=== PATIENT | female | born 1965 | race Caucasian/White ===

== ENCOUNTER 2018-03-31 18:05 | Inpatient (IN) | payer OTHER ==
[2018-03-31 18:44] LABS: Absolute Lymphocytes (CBC) 1.7 K/uL (0.7-4.9); Absolute Monocytes 0.5 K/uL (0.1-1.3); Absolute Neutrophil 8.7 K/uL (1.8-8.0); Basophils % 0.8 % (0-1.3); Eosinophils % 1.3 % (0-4.4); Hematocrit 33.2 % (36.0-45.0); Lymphocytes % 15.1 % (15.3-44.8); MCV 65.7 fL (80-100); MPV 8.7 fL (7.6-11.3); Monocytes % 4.1 % (3.3-12.3); RBC Red Blood Cell Count 5.06 M/uL (3.86-4.86)
[2018-03-31 18:55] VITALS: BMI 23.7
[2018-03-31 19:01] LABS: Albumin 3.7 g/dL (3.4-5.0); Bilirubin Total 0.3 mg/dL (0.2-1.0); Potassium 3.8 mmol/L (3.5-5.1); Protein, Total 7.7 g/dL (6.4-8.2); Protime INR 0.97
[2018-03-31 19:42] LABS: Blood Morphology Comment NOTED (NOT SEEN); Hypochromasia 1+; Platelet Estimate ADEQ; Target Cells 1+; Urine White Blood Cell Casts OK
[2018-03-31] MEDS: MORPHINE 4 MG/ML SYR IV PRN (20:22)
[2018-03-31] MEDS ORDERED: HEPARIN 10,000 UNIT/10 ML VIAL IV ONE (20:25)
[2018-03-31] MEDS ORDERED: D5W IV PRN (20:25)
[2018-03-31] MEDS ORDERED: HEPARIN IV PRN (20:25)
[2018-04-01] MEDS: MORPHINE 4 MG/ML SYR IV PRN ×5 (00:25→22:01)
[2018-04-01] MEDS: NICOTINE 7 MG/PAT TD SCH (00:27)
[2018-04-01 03:03] LABS: Urine Appearance CLEAR; Urine Bilirubin NEGATIVE (NEG); Urine Blood NEGATIVE (NEG); Urine Color YELLOW; Urine Glucose NEGATIVE (NEG); Urine Protein NEGATIVE (NEG); Urine Urobilinogen 0.2 mg/dL (0.2-1.0); Urine pH 6.5 (5.0-7.0)
[2018-04-01 03:04] LABS: Urine Microscopic Reflex NO UMIC
[2018-04-01 07:32] LABS: MPV 8.9 fL (7.6-11.3)
[2018-04-01 08:30] LABS: Platelet Estimate ADEQ
[2018-04-01 09:15] LABS: Hematocrit 30.4 % (36.0-45.0); MCH 20.5 pg (27.0-35.0); MCV 65.2 fL (80-100); MPV 9.6 fL (7.6-11.3); RBC Red Blood Cell Count 4.66 M/uL (3.86-4.86)
--- NOTE | 2018-04-01 10:43 | CON ---
History Of Present Illness: Ms. Richey is a 53-year-old. She went to see Dr. Manzo because the s econd toe on her left foot turned purple, started hurting. An arterial Doppler was done. It indicat es there is probably aorto or iliac disease on the left and I asked to see her to see if an angiogram might be helpful. The patient has never had any peripheral interventions before. She is a heavy ci garette smoker, failed to quit. She has never had myocardial infarction or stroke or any other vascu lar interventions. She has underlying hypertension and COPD. She takes temazepam, diltiazem, Proton ix, Zofran, and vitamin B12. She has a problem with chronic anemia and indeed she is anemic right no w. Her mean corpuscular volume is just 65, so I will ask Dr. Julian, who has seen her before to se e if he thinks she could tolerate being on aspirin and Plavix. We can repeat a CBC now and see if he r hemoglobin has fallen while she has been on heparin that might help us feel more confident about pu tting her on anticoagulants. Physical Examination: General: She is alert, oriented, pleasant, not in distress. Vital Signs: 5 feet 3, 134 pounds. HEENT: Normal. No carotid bruit. Lungs: Clear. Cardiac: Normal. Left femoral bruit. Extremities: Pulses on the left foot are barely, palpable on the right foot. There are normal both dorsalis pedis and posterior tibial. Assessment And Plan: We will do a CBC, set her up for an angiogram, get Dr. Manzo to put on the shilo t what we know about her GI tract, whether she would be a candidate or could withstand dual anti-platelet therapy for a month. LUZ MARIA/MODL Voice ID: [id number] Report ID: [id number]
--- NOTE | 2018-04-01 10:49 | HP ---
Date of Admission: 03/31/2018 Chief Complaint: Pain, discoloration, left foot. History Of Present Illness: A 53-year-old female, who was brought to my office with pain and discolo ration of the toe. The patient clinically diagnosed by me as a severe impending gangrene with rest p ain. The patient had outpatient Doppler study, which confirmed the findings. The patient is admitte d for heparin treatment and Cardiology consultation to see whether she is a candidate for angioplasty , if not she may require surgical rerouting. Past Medical History: Positive for hypertension. She also claims to have had history of coronary sp asm related to angina in the past. Other medical history includes history of rheumatoid arthritis. Family History: Noncontributory. Personal History: She is allergic to codeine. She has been a smoker for many years. Review of Systems: No history of fever, chills, rigors. Physical Examination: General: Revealed 53-year-old female, fully alert and oriented. Vital Signs: Normal. HEENT: Negative. Neck: Supple. JVD negative. Chest: Clear. Heart: Regular. Abdomen: Soft. Extremities: There is diffuse cyanosis of distal foot. Dorsalis pedis and posterior tibial are bare ly palpable. The femoral artery in the groin is palpable. Laboratory Data: CBC; hemoglobin 10.1. Chem profile is normal, kidney function. 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 2.Hypertension. 3.History of coronary spasm. 4.History of rheumatoid arthritis. Plan: The patient has been started on heparin. Cardiology consult has been done. NIYA/BRITTANY Voice ID: [id number]
[2018-04-01] MEDS ORDERED: HEPA 1000U/500MLS 2,000 UNIT/1,000 ML BAG IV ONE (12:22)
[2018-04-01] MEDS ORDERED: ATROPINE SULF 1 MG/10 ML SYR IV ONE (12:22)
[2018-04-01] MEDS ORDERED: HEPARIN 5000 UNIT/ML 1 ML VIAL ONE (12:22)
[2018-04-01] MEDS ORDERED: NA CHLORIDE 0.9% 500 ML ONE (13:27)
[2018-04-01] MEDS ORDERED: FENTANYL CITR 100 MCG/2 ML ONE (13:27)
[2018-04-01] MEDS ORDERED: MIDAZOLAM HCL 2 MG/2 ML INJ ONE (13:27)
[2018-04-01] MEDS ORDERED: LIDOCAINE 1% MPF 5 ML VIAL ONE (13:46)
[2018-04-01] MEDS ORDERED: HYDRALAZINE HCL 20 MG/ML VIAL ONE (14:29)
[2018-04-01] MEDS ORDERED: HYDRALAZINE HCL 20 MG/ML VIAL IV ONE (14:29)
[2018-04-01] MEDS ORDERED: AMLODIPINE 5 MG TAB PO ONE (14:31)
[2018-04-01] MEDS ORDERED: PRASUGREL (EFFIENT) 10 MG TAB ONE (14:39)
--- NOTE | 2018-04-01 16:01 | OP ---
Surgeon: Bandar Fernandez MD Procedures: Abdominal aortic angiogram with runoffs, percutaneous transluminal angioplasty of the ve ry proximal left common iliac artery successful with a 6.0 x 39 Omnilink stent. Procedure Findings: The patient's right-sided arteries have no significant stenosis. On the left, t here was an ostial or very proximal left common iliac stenosis about 80%. There was evidence of diss ection and thrombus, and it looked like the culprit lesion. The common femoral and superficial femor al were quite good until the superficial femoral got down to the mid thigh. Then, there was an abrup t closure, but there was good collateral flow from femorals and almost normal flow by collateral vess els. We decided not to angioplasty the SFA, but angioplasty of the iliac artery and this was done dye ccessfully. There was no residual stenosis. There was resolution of the dissection. Procedure In Detail: The patient gave us informed consent, brought to the cardiac director of labor and delivery in a fast ing state. Right femoral artery was entered using a needle, a 4-Surinamese sheath. A 4-Surinamese pigtail c atheter was used to do the initial angiograms. After we saw the anatomy, it was felt that the best a pproach was to go into the left femoral so that artery was entered using a needle and 6-Surinamese sheath . We were able to pass the wire across the lesion easily. We advanced a 6 x 39 Omnilink stent, infl ated to 12 atmospheres. There were an excellent angiographic result and normal runoff. The patient was not having any pain, so we stopped the procedure there. During the procedure, we gave 5000 units of heparin. We angiogramed both femoral arteries via the sheath and found that both sides had adequ ate anatomy for closing with Angio-Seal. We will do that when the INR is less than 260. She will re ceive Effient and aspirin. She will take Plavix and aspirin for a month. She will be strongly encou raged to quit smoking. If she has enough symptoms, we will consider doing the left SFA at a later ti me. Because of the nature of her anatomy, this would have to be a staged procedure, preferably with a month or more in between the procedures. LUZ MARIA/BRITTANY Voice ID: [id number] Report ID: [id number]
[2018-04-02] MEDS: MORPHINE 4 MG/ML SYR IV PRN ×5 (02:15→19:36)
[2018-04-02 04:59] LABS: MPV 8.9 fL (7.6-11.3)
[2018-04-02 05:26] LABS: Platelet Estimate ADEQ
[2018-04-02] MEDS: PRASUGREL (EFFIENT) 10 MG TAB PO SCH (08:43)
[2018-04-02] MEDS: ASPIRIN EC 81 MG TAB PO SCH (08:43)
[2018-04-02] MEDS: NICOTINE 7 MG/PAT TD SCH (08:45)
[2018-04-02] MEDS: PANTOPRAZOLE 40MG TABLET PO SCH (08:56)
[2018-04-02] MEDS: AMLODIPINE 10 MG TAB PO SCH (08:56)
[2018-04-02] MEDS ORDERED: AMLODIPINE 5 MG TAB PO SCH (09:00)
--- NOTE | 2018-04-02 11:50 | PN ---
Her toes still look a little bit blue. Her cardiac catheterization sites on both sides look good, on the right is a little bit sore. The patient feels well. I would make sure she tolerates this and p rachelhaps she can go home tomorrow from this. I have asked her to walk around a lot today, get used to the medicine she is on, good to learn about them, and I think we could have a staged procedure to try to open up her left superficial femoral artery at a later date. It would probably be best to attemp t an antegrade stick to do that. LUZ MARIA/BRITTANY Voice ID: [id number] Report ID: [id number]
[2018-04-02] MEDS: ONDANSETRON 4 MG/2 ML VIAL IV PRN ×2 (12:34→18:09)
[2018-04-02] MEDS ORDERED: DILTIAZEM HCL 360 MG PO SCH (17:30)
[2018-04-02 20:46] LABS: Absolute Lymphocytes (CBC) 1.5 K/uL (0.7-4.9); Absolute Monocytes 0.6 K/uL (0.1-1.3); Absolute Neutrophil 4.8 K/uL (1.8-8.0); Basophils % 0.5 % (0-1.3); Eosinophils % 3.3 % (0-4.4); Hematocrit 29.4 % (36.0-45.0); Lymphocytes % 20.6 % (15.3-44.8); MCH 20.3 pg (27.0-35.0); MPV 9.1 fL (7.6-11.3); RBC Red Blood Cell Count 4.46 M/uL (3.86-4.86)
[2018-04-02 20:48] LABS: MCV 65.9 fL (80-100)
[2018-04-02] MEDS: HYDROCODONE/APAP 7.5/325 MG TAB PO SCH (22:45)
[2018-04-03] MEDS: MORPHINE 4 MG/ML SYR IV PRN ×4 (00:10→12:48)
[2018-04-03] MEDS: ONDANSETRON 4 MG/2 ML VIAL IV PRN ×2 (01:21→12:49)
[2018-04-03 05:15] LABS: MPV 9.4 fL (7.6-11.3)
[2018-04-03 05:24] LABS: Platelet Estimate ND
[2018-04-03] MEDS: HYDROCODONE/APAP 7.5/325 MG TAB PO SCH ×2 (05:58→11:57)
[2018-04-03] MEDS: PRASUGREL (EFFIENT) 10 MG TAB PO SCH (08:37)
[2018-04-03] MEDS: ASPIRIN EC 81 MG TAB PO SCH (08:38)
[2018-04-03] MEDS: PANTOPRAZOLE 40MG TABLET PO SCH (08:39)
[2018-04-03] MEDS: AMLODIPINE 10 MG TAB PO SCH (08:40)
[2018-04-03] MEDS: NICOTINE 7 MG/PAT TD SCH (08:47)
[2018-04-03 11:05] VITALS: O2SAT 97
--- NOTE | 2018-04-03 16:43 | PN ---
Date of Progress Note: 04/02/2018 The patient was seen on 04/02/2018. She had mild cyanosis of the fifth toe and generally it looks be tter. The patient still has some pain. I spoke to Dr. Fernandez and he wants to observe her for 24 everardo rs. This was explained to the patient. The patient otherwise is stable. She is walking in the room . NIYA/BRITTANY Voice ID: [id number] Report ID: [id number]
[2018-04-03 18:22] VITALS: BP 137/74; TEMP 96.9
== END 2018-04-03 17:10 | disposition home or self-care (01) | DRG 254 ==
LOC: 2ND 18:10 → OBSVTOIN 04-02 12:39
PROVIDERS: ADMIT Internal Medicine; ATTEND Internal Medicine
PROC: 047D3DZ Dilation of Left Common Iliac Artery with Intraluminal Device, Percutaneous Approach (ICD-10-PCS; principal; 2018-04-01)
PROC: B41D1ZZ Fluoroscopy of Aorta and Bilateral Lower Extremity Arteries using Low Osmolar Contrast (ICD-10-PCS; 2018-04-01)
DX: I70.222 Atherosclerosis of native arteries of extremities with rest pain, left leg (principal); F17.210 Nicotine dependence, cigarettes, uncomplicated; I10 Essential (primary) hypertension; J44.9 Chronic obstructive pulmonary disease, unspecified; D64.9 Anemia, unspecified; M06.9 Rheumatoid arthritis, unspecified; Z88.5 Allergy status to narcotic agent
CPT/HCPCS: 36415; 37221; 80053; 81003; 85025; 85027; 85049; 85347; 85610; 85730; C1725; C1760; C1887; C1893; G0378; J0360; J1644; J2250; J2405; J3010

== ENCOUNTER 2018-04-20 14:38 | Inpatient (IN) | payer OTHER, SELFPAY ==
[2018-04-20] MEDS ORDERED: HEPARIN 500 UNIT/5 ML SYR IV SCH (16:00)
[2018-04-20 16:32] VITALS: BMI 24.0
[2018-04-20 17:13] LABS: Protime INR 0.88
[2018-04-20 17:21] LABS: BUN Blood Urea Nitrogen 12 mg/dL (7-18); Bicarbonate 28 mmol/L (21-32); Glucose Level 98 mg/dL (74-106); Potassium 3.3 mmol/L (3.5-5.1); Sodium Level 141 mmol/L (136-145)
[2018-04-20] MEDS: TRAMADOL HCL 50 MG TAB PO PRN (17:22)
[2018-04-20] MEDS: NICOTINE 21 MG/PAT TD SCH (17:22)
[2018-04-20 17:57] LABS: Absolute Lymphocytes (CBC) 2.1 K/uL (0.7-4.9); Absolute Monocytes 0.5 K/uL (0.1-1.3); Absolute Neutrophil 7.5 K/uL (1.8-8.0); Basophils % 0.6 % (0-1.3); Eosinophils % 3.2 % (0-4.4); Hematocrit 32.1 % (36.0-45.0); MCH 20.9 pg (27.0-35.0); MCV 66.7 fL (80-100); MPV 8.3 fL (7.6-11.3); Monocytes % 5.1 % (3.3-12.3); RBC Red Blood Cell Count 4.81 M/uL (3.86-4.86)
[2018-04-20] MEDS: FENTANYL CITR 100 MCG/2 ML IV PRN ×2 (19:34→22:12)
[2018-04-20] MEDS: ENOXAPARIN 40 MG/0.4 ML SQ SCH (21:00)
[2018-04-21] MEDS: FENTANYL CITR 100 MCG/2 ML IV PRN ×9 (00:29→22:19)
[2018-04-21 01:00] VITALS: O2SAT 98
--- NOTE | 2018-04-21 04:22 | HP ---
Date of Admission: 04/20/2018 Reason For Consultation: Ischemic left lower extremity. History Of Present Illness: Ms. Richey is a 53-year-old white woman. She recently was in the [facility] for claudication in the left leg. Dr. Fernandez performed an abdominal angiogram with runoff. He found her to have a 100% SFA and a 90% left common iliac. A left common iliac stent was placed succ essfully with 0% residual. The patient was discharged; however, continues to have worsening cyanosis in her left toes. Came in to see me in the office today with severe pain and unable to walk, and I admitted her for further evaluation and treatment. Past Medical History: Include PAD, hypertension, COPD, positive tobacco use, and chronic anemia. Allergies: INCLUDE CODEINE. Review of Systems: Negative. Social History: Positive for tobacco which continues. Family History: Negative. Medications: At home include aspirin, Effient, and Norvasc. Physical Examination: Vital Signs: Stable. She was afebrile. She was in [id number]-[id number] pain in her left lower extrem ity. She was in normal sinus rhythm. HEENT: Negative. Neck: Supple without any bruit, lymphadenopathy, JVD, or thyromegaly. Chest: Clear to auscultation and percussion. Cardiac: Revealed a regular rhythm and rate without any murmurs, gallops, or rubs. Abdomen: Benign. Extremities: Revealed no clubbing or edema. She has cyanosis of her left toes in the left lower ext remity. Diagnostic Data: Her hemoglobin was 10.1. EKG is nonspecific. Rest of the blood work was normal. Ms. Richey has had a catheterization in the past that showed minimal coronary artery disease, smal l coronaries, and history of coronary spasm. Impression And Plan: 1.Peripheral arterial disease, status post left common iliac stent with known 100% superficial femor al artery on the left side with cyanosis of the left toes and severe pain. We will admit her, put on Lovenox. Continue the aspirin and Effient. Give her medication for pain control, tramadol and fent anyl, and we will proceed with an antegrade stick in the morning of the left superficial femoral suman ry and hope to be able to open up the superficial femoral artery and help her with her ischemic limb. 2.History of coronary artery disease that is mild with coronary spasm and small vessels. 3.Hypertension. 4.Chronic obstructive pulmonary disease. 5.Tobacco abuse. Now, she is on Nicoderm. 6.Chronic anemia. ZURDO/BRITTANY Voice ID: [id number]
[2018-04-21] MEDS: PRASUGREL (EFFIENT) 10 MG TAB PO SCH (09:00)
[2018-04-21] MEDS: ASPIRIN EC 81 MG TAB PO SCH (09:10)
[2018-04-21] MEDS: ENOXAPARIN 40 MG/0.4 ML SQ SCH ×2 (09:10→22:19)
[2018-04-21] MEDS: NICOTINE 21 MG/PAT TD SCH (09:10)
[2018-04-21] MEDS: AMLODIPINE 10 MG TAB PO SCH (09:10)
[2018-04-21] MEDS ORDERED: HEPA 1000U/500MLS 1,000 UNIT/500 ML BAG IV ONE ×2 (09:16→10:47)
[2018-04-21] MEDS ORDERED: LIDOCAINE 1% MPF 2 ML AMPULE ONE (09:17)
[2018-04-21] MEDS ORDERED: NA CHLORIDE 0.9% 500 ML ONE (09:43)
[2018-04-21] MEDS ORDERED: HEPARIN 5000 UNIT/ML 1 ML VIAL ONE (09:44)
[2018-04-21] MEDS ORDERED: MIDAZOLAM HCL 2 MG/2 ML INJ ONE ×2 (09:44→10:33)
[2018-04-21] MEDS ORDERED: FENTANYL CITR 100 MCG/2 ML ONE ×3 (09:44→11:28)
--- NOTE | 2018-04-21 12:55 | OP ---
Surgeon: Ab Jones MD Counselor/Art Therapist: Winsome Kaba. The patient was admitted on 04/20/2018 for ischemic toes with cyanosis and severe pain, was placed on Lovenox overnight. She was known to have a totally occluded left SFA. She was brought to the hoisting laborer today as an inpatient, had an antegrade stick. A 6-Korean sheath int roduced in the left common femoral artery. A Glidewire was used to cross the lesion successfully. 1 00% occlusion was treated down to 0% using a 4 x 80 Protege Everflex stent, self-expanding. We also dilated with a 4 x 60 [place] Star balloon at 8 atmosphere with 0% residuals. No complications. Anesthesia: Conscious sedation 45 minutes. Estimated Blood Loss: 5 cc. Postoperative Diagnosis: Peripheral vascular disease status post successful angioplasty and stent of the left superficial femoral artery. The patient has already been loaded with Effient approximately 3 weeks ago. We will continue her Eff ient, aspirin as she has at home. She will be at 6 hours bedrest after sheath pulling. I am hoping to send her home today, and I will see her in the office in 2 weeks. ZURDO/BRITTANY Voice ID: [id number] Report ID: [id number]
[2018-04-21] MEDS ORDERED: ACETAMINOPHEN 325 MG TABLET PO PRN (17:35)
[2018-04-21] MEDS ORDERED: NITROGLYCERIN 0.4 MG/TAB SL PRN (17:35)
[2018-04-21] MEDS ORDERED: MORPHINE 4 MG/ML SYR IV PRN (17:37)
[2018-04-21] MEDS: NA CHLORIDE 0.9% 1,000 ML IV SCH (18:00)
[2018-04-22] MEDS: FENTANYL CITR 100 MCG/2 ML IV PRN ×4 (00:23→06:37)
[2018-04-22] MEDS: NA CHLORIDE 0.9% 1,000 ML IV SCH (08:18)
[2018-04-22 08:30] VITALS: BP 122/81; TEMP 97.4
[2018-04-22] MEDS: NICOTINE 21 MG/PAT TD SCH (08:57)
[2018-04-22] MEDS: PRASUGREL (EFFIENT) 10 MG TAB PO SCH (08:57)
[2018-04-22] MEDS: ASPIRIN EC 81 MG TAB PO SCH (08:58)
[2018-04-22] MEDS: AMLODIPINE 10 MG TAB PO SCH (08:58)
[2018-04-22] MEDS: ENOXAPARIN 40 MG/0.4 ML SQ SCH (08:58)
[2018-04-22] MEDS: TRAMADOL HCL 50 MG TAB PO PRN (09:05)
== END 2018-04-22 10:20 | disposition home or self-care (01) | DRG 254 ==
LOC: 4TH 15:13
PROC: 047L3DZ Dilation of Left Femoral Artery with Intraluminal Device, Percutaneous Approach (ICD-10-PCS; principal; 2018-04-21)
PROC: B41G1ZZ Fluoroscopy of Left Lower Extremity Arteries using Low Osmolar Contrast (ICD-10-PCS; 2018-04-21)
DX: I73.89 Other specified peripheral vascular diseases (principal); I70.92 Chronic total occlusion of artery of the extremities; I10 Essential (primary) hypertension; K21.9 Gastro-esophageal reflux disease without esophagitis; J44.9 Chronic obstructive pulmonary disease, unspecified; F17.200 Nicotine dependence, unspecified, uncomplicated; D64.9 Anemia, unspecified; I25.111 Atherosclerotic heart disease of native coronary artery with angina pectoris with documented spasm; E78.5 Hyperlipidemia, unspecified; Z95.820 Peripheral vascular angioplasty status with implants and grafts; Z88.5 Allergy status to narcotic agent; Z79.02 Long term (current) use of antithrombotics/antiplatelets; Z79.82 Long term (current) use of aspirin
CPT/HCPCS: 36415; 37226; 80048; 81025; 85025; 85610; 85730; 86850; 86900; 86901; C1725; C1893; J1644; J1650; J2001; J2250; J3010